=== PATIENT | male | born 1995 | race Hispanic/Latino ===

== ENCOUNTER 2021-09-04 23:10 | Emergency (ER) | payer OTHER ==
[~2021-09-04] VITALS: Ht 182.9 cm; Wt 86.2 kg
[2021-09-04 23:17] VITALS: BP 114/67
[2021-09-05 00:01] LABS: BASOPHILS % (AUTO) 0.2 % (0.0-5.0); EOSINOPHILS % (AUTO) 0.3 % (0.0-8.0); HEMATOCRIT 40.7 % (42-54); LYMPHOCYTES % (AUTO) 8.6 % (21.0-51.0); MEAN CORPUSCULAR HEMOGLOBIN 32.2 pg (27.0-33.0); MEAN CORPUSCULAR HGB CONC 33.9 g/dL (32.0-36.0); MEAN CORPUSCULAR VOLUME 94.9 fL (79-99); MONOCYTES % (AUTO) 5.5 % (3.0-13.0); PLATELET COUNT (AUTO) 205 K/uL (130-400); RED BLOOD CELL COUNT(AUTO) 4.29 MIL/uL (4.50-6.20); RED CELL DISTRIBUTION WIDTH 13.2 % (11.0-15.5); WHITE BLOOD COUNT (AUTO) 11.9 K/uL (4.8-10.8)
[2021-09-05 00:27] LABS: CREATININE 1.2 mg/dL (0.5-1.5); POTASSIUM 3.5 mmol/L (3.5-5.1)
[2021-09-05 00:38] LABS: BILIRUBIN,TOTAL 0.1 mg/dL (0.2-1.0); TOTAL PROTEIN, SERUM 6.3 g/dL (6.0-8.3)
[2021-09-05] MEDS ORDERED: LEVETIRACETAM 500 MG TABLET PO SCH (01:30)
[2021-09-05] MEDS ORDERED: LEVE750T10 PO (01:54)
== END 2021-09-05 02:03 | disposition home or self-care (01) ==
LOC: EDH 23:10
DX: R56.9 Unspecified convulsions (principal)
CPT/HCPCS: 36415; 70450; 80053; 85025